=== PATIENT | female | born 1980 | race Caucasian/White ===

== ENCOUNTER 2018-06-18 13:15 | Emergency (ER) | payer MEDICAID ==
[~2018-06-18] VITALS: Ht 165.1 cm; Wt 103.0 kg
[2018-06-18] MEDS ORDERED: KETOROLAC 60MG/2ML VIAL IM ONE (17:00)
[2018-06-18 17:45] VITALS: BP 118/60
[2018-06-18] MEDS ORDERED: ONDANSETRON 4MG ODT PO ONE (18:00)
== END 2018-06-18 18:09 | disposition home or self-care (01) ==
LOC: ER 15:06
DX: F43.0 Acute stress reaction (principal); F41.9 Anxiety disorder, unspecified; R51 Headache; I10 Essential (primary) hypertension; Z88.8 Allergy status to other drugs, medicaments and biological substances
CPT/HCPCS: 81025; 93005; 96372; 99284; J1885; Q0162; 99285